=== PATIENT | female | born 1945 | race Caucasian/White ===

== ENCOUNTER 2017-12-06 04:10 | Inpatient (IN) | payer MEDICAID, MEDICARE, OTHER ==
[~2017-12-06] VITALS: Ht 152.4 cm; Wt 70.3 kg
[~2017-12-06 04:10] MED LIST: AMLO5TAB88 PO; FERR-63 PO; LEVO175T7 PO; LORA10TA7 PO; LOSA100T14 PO; METF-416 PO; OMEP20CA10 PO; SERT-112 PO
[2017-12-06] MEDS ORDERED: NITROGLYCERIN OINT 1GM/INCH UDPKT TD ONE (05:00)
[2017-12-06] MEDS ORDERED: FAMOTIDINE 20MG/2ML VIAL IV ONE (05:00)
[2017-12-06] MEDS ORDERED: ASPIRIN 325MG TABLET PO ONE (05:00)
[2017-12-06 05:48] LABS: BASOPHILS % 0.7 % (0.0-2.0); EOSINOPHILS % 2.8 % (0.0-5.0); HEMATOCRIT. 40.2 % (36.0-48.0); HEMOGLOBIN. 13.4 g/dL (12.0-16.0); LYMPHOCYTES % 26.1 % (20.0-50.0); MEAN CORPUSCULAR VOLUME 90.2 fL (81.0-99.0); MEAN PLATELET VOLUME 7.5 fl (7.4-10.4); MONOCYTES % 6.4 % (2.0-8.0); PLATELET 182 x1000/uL (130-400); RED BLOOD CELL COUNT 4.45 mill/uL (4.2-5.4); RED CELL DISTRIBUTION WIDTH 14.3 % (11.6-14.6)
[2017-12-06 06:23] LABS: CHLORIDE 106 mEq/L (98-107)
[2017-12-06 06:24] LABS: CLARITY URINE CLEAR (CLEAR); COLOR URINE YELLOW (YELLOW); KETONES URINE NEGATIVE (NEGATIVE); LEUKOCYTE ESTERASE URINE NEGATIVE (NEGATIVE); NITRITE URINE NEGATIVE (NEGATIVE); OCCULT BLOOD URINE NEGATIVE (NEGATIVE); PROTEIN URINE NEGATIVE (NEGATIVE); SPECIFIC GRAVITY URINE 1.016 (1.005-1.030); UROBILINOGEN URINE 0.2 E.U./dL (0.2-1.0)
[2017-12-06 09:53] VITALS: BP 122/72
[2017-12-06] MEDS ORDERED: ACETAMINOPHEN 650MG SUPP PR PRN (11:15)
[2017-12-06] MEDS ORDERED: DEXTROSE 50% WATER 50ML SYRINGE IV PRN (11:15)
[2017-12-06] MEDS ORDERED: IPRATROPIUM/ALBUTEROL 0.5-3(2.5)MG/3ML NEB INH PRN (11:15)
[2017-12-06] MEDS ORDERED: ONDANSETRON HCL 4MG/2ML INJ IV PRN (11:15)
[2017-12-06] MEDS ORDERED: DIPHENHYDRAMINE 50MG/ML VIAL IV PRN (11:15)
[2017-12-06] MEDS ORDERED: DEXT 5%/0.45% NACL 1000ML 1,000 ML IV SCH (11:30)
[2017-12-06 12:00] VITALS: BP 109/61
[2017-12-06] MEDS: BLOOD SUGAR DIAGNOSTIC STRIP TEST SCH ×3 (12:10→20:34)
[2017-12-06] MEDS: INSULIN LISPRO 100 UNITS/ML SUBCUT SCH ×3 (12:40→22:36)
[2017-12-06 15:20] VITALS: BP 122/64
[2017-12-06 16:20] LABS: BASOPHILS % 0.6 % (0.0-2.0); EOSINOPHILS % 2.7 % (0.0-5.0); HEMATOCRIT. 37.3 % (36.0-48.0); HEMOGLOBIN. 12.8 g/dL (12.0-16.0); LYMPHOCYTES % 35.1 % (20.0-50.0); MEAN CORPUSCULAR HEMOGLOBIN 30.5 pg (28.0-32.0); MEAN CORPUSCULAR VOLUME 89.1 fL (81.0-99.0); MEAN PLATELET VOLUME 7.7 fl (7.4-10.4); MONOCYTES % 6.6 % (2.0-8.0); PLATELET 178 x1000/uL (130-400); RED BLOOD CELL COUNT 4.19 mill/uL (4.2-5.4); RED CELL DISTRIBUTION WIDTH 14.1 % (11.6-14.6)
[2017-12-06 16:43] LABS: CHLORIDE 108 mEq/L (98-107)
[2017-12-06 16:50] LABS: *AMPHETAMINES SCREEN URINE NEGATIVE (NEGATIVE); *BARBITURATES SCREEN URINE NEGATIVE (NEGATIVE); *BENZODIAZEPINES SCREEN URINE NEGATIVE (NEGATIVE); *COCAINE SCREEN URINE NEGATIVE (NEGATIVE); METHADONE URINE SCREEN NEGATIVE (NEGATIVE); OPIATES URINE SCREEN NEGATIVE (NEGATIVE)
[2017-12-06 16:51] LABS: CANNABINOID URINE SCREEN NEGATIVE (NEGATIVE); PHENCYCLIDINE URINE SCREEN NEGATIVE (NEGATIVE)
[2017-12-06 16:56] LABS: CREATINE KINASE 29 IU/L (26-192)
[2017-12-06 16:59] LABS: CREATINE KINASE MB FRACTION < 1.0 ng/mL (0.5-3.6)
[2017-12-06] MEDS ORDERED: MAGNESIUM/ALUMINUM HYDROXIDE/SIMETHICONE 30ML UDC PO PRN (17:15)
[2017-12-06] MEDS ORDERED: DOCUSATE SODIUM 100MG CAPSULE PO PRN (17:15)
[2017-12-06 17:39] VITALS: BP_SYST 114; BP_SYST 122; BP_DIAS 55; BP_DIAS 64
[2017-12-06] MEDS: NICOTINE 14MG PATCH TD SCH (18:00)
[2017-12-06 20:00] VITALS: BP 112/57
[2017-12-06] MEDS: CARVEDILOL 3.125 MG TABLET PO SCH (21:00)
[2017-12-06] MEDS: ENOXAPARIN 40MG/0.4ML SYR SUBCUT SCH (22:34)
[2017-12-06] MEDS ORDERED: IOHEXOL-300 100 ML BOTTLE ONE (23:19)
[2017-12-07] VITALS (7 sets, daily range): BP systolic 112–134; BP diastolic 60–80
[2017-12-07 01:20] LABS: CREATINE KINASE 33 IU/L (26-192); CREATINE KINASE MB FRACTION < 1.0 ng/mL (0.5-3.6)
[2017-12-07] MEDS: BLOOD SUGAR DIAGNOSTIC STRIP TEST SCH ×4 (05:53→21:10)
[2017-12-07] MEDS: INSULIN LISPRO 100 UNITS/ML SUBCUT SCH ×4 (06:29→21:20)
[2017-12-07 07:17] LABS: D-DIMER 0.29 mg/L FEU (<0.50); PROTHROMBIN TIME 10.5 sec (9.1-11.1)
[2017-12-07 07:23] LABS: BASOPHILS % 0.5 % (0.0-2.0); EOSINOPHILS % 5.5 % (0.0-5.0); HEMATOCRIT. 38.6 % (36.0-48.0); HEMOGLOBIN. 12.9 g/dL (12.0-16.0); LYMPHOCYTES % 46.8 % (20.0-50.0); MEAN CORPUSCULAR VOLUME 89.6 fL (81.0-99.0); MEAN PLATELET VOLUME 7.6 fl (7.4-10.4); MONOCYTES % 8.4 % (2.0-8.0); NEUTROPHILS % 38.8 % (40.0-76.0); PLATELET 183 x1000/uL (130-400); RED BLOOD CELL COUNT 4.31 mill/uL (4.2-5.4); RED CELL DISTRIBUTION WIDTH 14.3 % (11.6-14.6)
[2017-12-07 07:55] LABS: CHLORIDE 107 mEq/L (98-107)
[2017-12-07 08:04] LABS: LDL CHOLESTEROL 114 mg/dL (5-100)
[2017-12-07 08:06] LABS: T4 FREE 1.07 ng/dL (0.76-1.46)
[2017-12-07 08:07] LABS: HDL CHOLESTEROL 28 mg/dL (40-59)
[2017-12-07] MEDS: ASPIRIN 81MG TABLET PO SCH (08:26)
[2017-12-07] MEDS: NICOTINE 14MG PATCH TD SCH (08:27)
[2017-12-07] MEDS: CARVEDILOL 3.125 MG TABLET PO SCH ×2 (08:27→21:18)
[2017-12-07] MEDS ORDERED: SODIUM BICARBONATE 4% (2.4MEQ) 5ML VIAL IV ONE (09:41)
[2017-12-07] MEDS: ACETAMINOPHEN 650MG/20.3ML UDC PO PRN ×2 (10:42→23:47)
[2017-12-07] MEDS ORDERED: REGADENOSON 0.4 MG/5 ML IV ONE (13:45)
[2017-12-07] MEDS ORDERED: MECLIZINE 25MG TABLET PO NR (14:00)
[2017-12-07] MEDS ORDERED: MECLIZINE 12.5MG TABLET PO PRN (14:00)
[2017-12-07] MEDS ORDERED: ATORVASTATIN CALCIUM 20MG TABLET PO SCH (21:00)
[2017-12-07] MEDS: ENOXAPARIN 40MG/0.4ML SYR SUBCUT SCH (21:19)
[2017-12-08] VITALS: BP_SYST 116; BP_SYST 125; BP_SYST 128; BP_DIAS 71; BP_DIAS 73
[2017-12-08] MEDS ORDERED: DEXT 5%/0.45% NACL 1000ML 1,000 ML IV SCH
[2017-12-08 04:00] VITALS: BP_SYST 124; BP_SYST 130; BP_SYST 94; BP_DIAS 61; BP_DIAS 70; BP_DIAS 73
[2017-12-08] MEDS: BLOOD SUGAR DIAGNOSTIC STRIP TEST SCH ×3 (06:19→18:04)
[2017-12-08] MEDS: INSULIN LISPRO 100 UNITS/ML SUBCUT SCH ×3 (06:19→18:04)
[2017-12-08 07:41] LABS: BASOPHILS % 0.6 % (0.0-2.0); EOSINOPHILS % 5.7 % (0.0-5.0); HEMOGLOBIN. 13.5 g/dL (12.0-16.0); LYMPHOCYTES % 47.1 % (20.0-50.0); MEAN CORPUSCULAR HEMOGLOBIN 31.6 pg (28.0-32.0); MEAN CORPUSCULAR VOLUME 89.2 fL (81.0-99.0); MEAN PLATELET VOLUME 7.5 fl (7.4-10.4); NEUTROPHILS % 37.6 % (40.0-76.0); PLATELET 176 x1000/uL (130-400); RED BLOOD CELL COUNT 4.26 mill/uL (4.2-5.4); RED CELL DISTRIBUTION WIDTH 13.8 % (11.6-14.6)
[2017-12-08 08:00] VITALS: BP 136/69
[2017-12-08 08:30] LABS: CHLORIDE 107 mEq/L (98-107)
[2017-12-08] MEDS: CARVEDILOL 3.125 MG TABLET PO SCH (08:53)
[2017-12-08] MEDS: NICOTINE 14MG PATCH TD SCH (08:53)
[2017-12-08] MEDS: MORPHINE SULFATE 4 MG/ML CPJ (NOT FOR IM USE) IV PRN ×2 (08:53→13:01)
[2017-12-08] MEDS: ASPIRIN 81MG TABLET PO SCH (08:53)
[2017-12-08 09:00] VITALS: BP_SYST 122; BP_SYST 125; BP_SYST 127; BP_DIAS 66; BP_DIAS 68
[2017-12-08] MEDS ORDERED: REGADENOSON 0.4 MG/5 ML IV ONE (11:21)
[2017-12-08 12:45] VITALS: BP 136/67
[2017-12-08 16:03] VITALS: BP_SYST 108; BP_SYST 114; BP_SYST 128; BP_DIAS 28; BP_DIAS 55; BP_DIAS 57
[2017-12-08] MEDS ORDERED: ALPRAZOLAM 0.25 MG TABLET PO NR (16:55)
== END 2017-12-08 19:48 | disposition home or self-care (01) | DRG 375 ==
LOC: ER 04:10 → 8WST 06:28 → EDBEDREQTM 06:30 → EDBEDREQ 06:30 → ENRESERV 07:04 → ER 07:15
PROVIDERS: ADMIT Internal Medicine; ATTEND Internal Medicine
DX: D49.0 Neoplasm of unspecified behavior of digestive system (principal); E44.1 Mild protein-calorie malnutrition; E11.65 Type 2 diabetes mellitus with hyperglycemia; G90.8 Other disorders of autonomic nervous system; R07.89 Other chest pain; F17.210 Nicotine dependence, cigarettes, uncomplicated; R51 Headache; F41.9 Anxiety disorder, unspecified; E78.5 Hyperlipidemia, unspecified; E03.9 Hypothyroidism, unspecified; I11.9 Hypertensive heart disease without heart failure; I25.2 Old myocardial infarction; Z82.49 Family history of ischemic heart disease and other diseases of the circulatory system; Z83.3 Family history of diabetes mellitus; Z91.19 Patient's noncompliance with other medical treatment and regimen
CPT/HCPCS: 36415; 71045; 74178; 76705; 78452; 80048; 80061; 80305; 82550; 82553; 82962; 83036; 83605; 83735; 83880; 84439; 84443; 84484; 85379; 93005; 93017; 93306; 96374; 97161; 99285; A9500; J1650; J1815; J2270; J2785; J3490; J8597; Q9967

== ENCOUNTER 2022-03-07 19:42 | Emergency (ER) | payer MEDICARE, OTHER ==
[~2022-03-07] VITALS: Ht 157.5 cm; Wt 69.1 kg
[~2022-03-07 19:42] MED LIST changes: -LOSA100T14 PO; +LOSA100T32 PO; -OMEP20CA10 PO; +OMEP20CA14 PO
[2022-03-07 20:05] VITALS: BP 138/84
[2022-03-07] MEDS ORDERED: ACETAMINOPHEN 325MG TABLET PO ONE (22:15)
[2022-03-07] MEDS ORDERED: TOPUD PO (22:39)
[2022-03-07] MEDS ORDERED: IBUP-2028 MT (22:39)
== END 2022-03-07 23:24 | disposition home or self-care (01) ==
LOC: ER 19:42
DX: S00.83XA Contusion of other part of head, initial encounter (principal); W18.39XA Other fall on same level, initial encounter; Y93.89 Activity, other specified; Y92.89 Other specified places as the place of occurrence of the external cause; Y99.8 Other external cause status; E11.9 Type 2 diabetes mellitus without complications; I10 Essential (primary) hypertension; Z79.899 Other long term (current) drug therapy
CPT/HCPCS: 70486; 99284

== ENCOUNTER 2022-10-03 23:28 | Emergency (ER) | payer OTHER ==
[~2022-10-03] VITALS: Ht 157.5 cm; Wt 68.0 kg
[~2022-10-03 23:28] MED LIST changes: +IBUP-2028 MT; -LOSA100T32 PO; +LOSA100T33 PO; +TOPUD PO
[2022-10-03 23:45] VITALS: O2SAT 98
[2022-10-04 01:35] LABS: EOSINOPHILS % 3.7 % (0.0-5.0); HEMATOCRIT. 26.4 % (36.0-48.0); HEMOGLOBIN. 8.8 g/dL (12.0-16.0); LYMPHOCYTES % 14.4 % (20.0-50.0); MEAN CORPUSCULAR HGB CONC 33.2 g/dL (31.0-37.0); MEAN CORPUSCULAR VOLUME 81.4 fL (81.0-99.0); MEAN PLATELET VOLUME 8.1 fl (7.4-10.4); MONOCYTES % 7.1 % (2.0-8.0); NEUTROPHILS % 73.8 % (40.0-76.0); PLATELET 116 x1000/uL (130-400); RED BLOOD CELL COUNT 3.24 mill/uL (4.2-5.4); RED CELL DISTRIBUTION WIDTH 16.6 % (11.6-14.6); WHITE BLOOD COUNT 7.1 x1000/uL (4.5-11.0)
[2022-10-04] MEDS ORDERED: FERR1TAB91 MT (01:42)
[2022-10-04 03:48] LABS: INR 1.4; PROTHROMBIN TIME 15.3 sec (9.6-11.0)
[2022-10-04 03:49] LABS: PARTIAL THROMBOPLASTIN TIME 23.6 sec (23.4-31.0)
[2022-10-04 05:30] VITALS: BP 149/65; PULSE 64; RESP 14; TEMP 98.9
== END 2022-10-04 05:35 ==
LOC: ER 23:28
DX: R04.0 Epistaxis (principal); D64.9 Anemia, unspecified; E11.9 Type 2 diabetes mellitus without complications; I10 Essential (primary) hypertension; Z79.899 Other long term (current) drug therapy
CPT/HCPCS: 36415; 85025; 99283

== ENCOUNTER 2023-04-09 03:07 | Inpatient (IN) | payer OTHER ==
[~2023-04-09] VITALS: Ht 167.6 cm; Wt 68.5 kg
[~2023-04-09 03:07] MED LIST changes: +FERR1TAB91 MT
[2023-04-09 03:39] LABS: HEMATOCRIT. 36.1 % (36.0-48.0); HEMOGLOBIN. 11.8 g/dL (12.0-16.0); MEAN CORPUSCULAR HEMOGLOBIN 29.1 pg (28.0-32.0); MEAN CORPUSCULAR HGB CONC 32.7 g/dL (31.0-37.0); MEAN PLATELET VOLUME 7.6 fl (7.4-10.4); PLATELET 235 x1000/uL (130-400); RED BLOOD CELL COUNT 4.05 mill/uL (4.2-5.4); RED CELL DISTRIBUTION WIDTH 18.4 % (11.6-14.6); WHITE BLOOD COUNT 15.3 x1000/uL (4.5-11.0)
[2023-04-09 03:42] LABS: DIFFERENTIAL COMMENT 1
[2023-04-09 03:43] LABS: PARTIAL THROMBOPLASTIN TIME 27.2 sec (23.4-31.0); PROTHROMBIN TIME 10.7 sec (9.6-11.0)
[2023-04-09 03:54] LABS: AMMONIA < 10 uMol/L (<32)
[2023-04-09 03:58] LABS: ALANINE AMINOTRANSFERASE 16 IU/L (10-49); ASPARTATE AMINOTRANSFERASE 24 IU/L (<34); BILIRUBIN TOTAL 1.1 mg/dL (0.1-1.0); CARBON DIOXIDE 23 mEq/L (21-32); CHLORIDE 102 mEq/L (98-107); CREATININE 1.2 mg/dL (0.6-1.0); GLUCOSE 232 mg/dL (70-105); POTASSIUM 4.4 mEq/L (3.5-5.1); PROTEIN TOTAL 6.8 g/dL (6.0-8.3); SODIUM 136 mEq/L (136-145); THYROID STIMULATING HORMONE 82.46 uIU/mL (0.55-4.78); TROPONIN I HIGH SENSITIVITY 14 ng/L (3.0-34); UREA NITROGEN BLOOD 21 mg/dL (9-23)
[2023-04-09] MEDS ORDERED: SODIUM CHLORIDE 0.9% 1,000 ML IV NR (04:15)
[2023-04-09 04:50] LABS: PLATELET ESTIMATE NORMAL
[2023-04-09 04:52] LABS: ETHANOL BLOOD < 10 mg/dL (<10)
[2023-04-09] MEDS: SODIUM CHLORIDE 0.9% 1,000 ML IV NR (05:42)
[2023-04-09 05:52] LABS: CLARITY URINE CLEAR (CLEAR); COLOR URINE DARK YELLOW (YELLOW); GLUCOSE URINE TRACE (NEGATIVE); KETONES URINE 1+ (NEGATIVE); LEUKOCYTE ESTERASE URINE NEGATIVE (NEGATIVE); NITRITE URINE NEGATIVE (NEGATIVE); OCCULT BLOOD URINE 1+ (NEGATIVE); PH URINE 5.5 (4.5-8.0); PROTEIN URINE 4+ (NEGATIVE); SPECIFIC GRAVITY URINE 1.028 (1.005-1.030)
[2023-04-09] MEDS ORDERED: PIPERACILLIN/TAZO 3.375G/50ML 50 ML IV SCH (06:00)
[2023-04-09 06:10] LABS: *AMPHETAMINES SCREEN URINE NEGATIVE (NEGATIVE); *BARBITURATES SCREEN URINE NEGATIVE (NEGATIVE); *BENZODIAZEPINES SCREEN URINE NEGATIVE (NEGATIVE); *COCAINE SCREEN URINE NEGATIVE (NEGATIVE); CANNABINOID URINE SCREEN NEGATIVE (NEGATIVE); ECSTASY MDMA SCREEN URINE NEGATIVE (NEGATIVE); METHADONE URINE SCREEN Neg (NEGATIVE); OPIATES URINE SCREEN PRESUMPTIVE POSITIVE (NEGATIVE); PHENCYCLIDINE URINE SCREEN NEGATIVE (NEGATIVE); RBC URINE 0-2 /hpf (0-2); WBC URINE 0-2 /hpf (0-2)
[2023-04-09 06:11] LABS: BACTERIA URINE NONE SEEN; SQUAMOUS EPITHELIAL CELL URINE FEW /lpf (RARE/1+)
[2023-04-09 06:12] LABS: YEAST URINE FEW BUDDING YEASTS
[2023-04-09 06:14] LABS: FINE GRANULAR CASTS URINE 0-5 /lpf
[2023-04-09] MEDS: AZTREONAM 2 GM in DEXT 5% WATER 100 ML IV SCH (06:25)
[2023-04-09] MEDS: LEVOTHYROXINE SODIUM 100 MCG/ VIAL IV NR (06:25)
[2023-04-09 08:00] VITALS: BP 142/81; PULSE 94; RESP 20; TEMP 97.2
[2023-04-09 09:00] VITALS: BP 142/81; PULSE 94; RESP 20; TEMP 97
[2023-04-09 12:00] VITALS: BP 175/76; PULSE 74; RESP 20; TEMP 97.6
[2023-04-09] MEDS: SODIUM CHLORIDE 0.9% 1,000 ML IV SCH (12:45)
[2023-04-09] MEDS ORDERED: DEXTROSE 50% WATER 50ML SYRINGE IV PRN (12:45)
[2023-04-09] MEDS: INSULIN LISPRO 100 UNITS/ML SUBCUT SCH (12:45)
[2023-04-09] MEDS: BLOOD SUGAR DIAGNOSTIC STRIP TEST SCH (13:34)
[2023-04-09] MEDS ORDERED: LEVOTHYROXINE SODIUM 100 MCG/ VIAL IV SCH (14:00)
[2023-04-09] MEDS: LEVOFLOXACIN 500MG PREMIX 100 ML IV NR (15:12)
[2023-04-09 16:00] VITALS: BP 174/78; PULSE 68; RESP 18; TEMP 98
[2023-04-10] VITALS (7 sets, daily range): BP systolic 141–187; BP diastolic 73–94; PULSE 75–83; RESP 17–20; TEMP 96.6–97.7
[2023-04-10 06:35] LABS: BASOPHILS % 0.2 % (0.0-2.0); EOSINOPHILS % 0.7 % (0.0-5.0); HEMATOCRIT. 29.6 % (36.0-48.0); HEMOGLOBIN. 10.1 g/dL (12.0-16.0); LYMPHOCYTES % 15.1 % (20.0-50.0); MEAN CORPUSCULAR HEMOGLOBIN 29.3 pg (28.0-32.0); MEAN PLATELET VOLUME 7.8 fl (7.4-10.4); PLATELET 190 x1000/uL (130-400); RED BLOOD CELL COUNT 3.44 mill/uL (4.2-5.4); WHITE BLOOD COUNT 7.1 x1000/uL (4.5-11.0)
[2023-04-10] MEDS: LEVOTHYROXINE SODIUM 100 MCG/ VIAL IV SCH (06:44)
[2023-04-10 06:45] LABS: CARBON DIOXIDE 22 mEq/L (21-32); CHLORIDE 108 mEq/L (98-107); CREATININE 0.9 mg/dL (0.6-1.0); GLUCOSE 135 mg/dL (70-105); POTASSIUM 3.7 mEq/L (3.5-5.1); SODIUM 139 mEq/L (136-145); UREA NITROGEN BLOOD 21 mg/dL (9-23)
[2023-04-10] MEDS ORDERED: LEVOFLOXACIN 250MG PREMIX 50 ML IV SCH (11:00)
[2023-04-10] MEDS: AMLODIPINE 10MG TABLET PO SCH (12:49)
[2023-04-10] MEDS: LEVOFLOXACIN 750MG PREMIX 150 ML IV SCH (21:03)
[2023-04-11] VITALS: BP 127/67; PULSE 62; RESP 18; TEMP 96.6
[2023-04-11 04:00] VITALS: BP 163/90; PULSE 80; RESP 18; TEMP 97.1
[2023-04-11 08:00] VITALS: BP 180/80; PULSE 81; RESP 18; TEMP 97.4
[2023-04-11 12:00] VITALS: BP 153/75; PULSE 78; RESP 18; TEMP 97.6
[2023-04-11 16:00] VITALS: BP 112/70; PULSE 110; RESP 18; TEMP 98
[2023-04-11 20:00] VITALS: BP 185/100; PULSE 87; RESP 17; TEMP 98.1
[2023-04-11] MEDS: CLONIDINE 0.1MG TABLET PO PRN (21:10)
[2023-04-11 22:36] LABS: T4 FREE 0.61 ng/dL (0.89-1.76); THYROID STIMULATING HORMONE 64.53 uIU/mL (0.55-4.78)
[2023-04-12] VITALS: BP 163/87; PULSE 72; RESP 18; TEMP 97.2
[2023-04-12 04:00] VITALS: BP 160/89; PULSE 87; RESP 19; TEMP 98.8
[2023-04-12 08:00] VITALS: BP 183/89; PULSE 78; RESP 18; TEMP 98.3
[2023-04-12 12:00] VITALS: BP 149/71; PULSE 75; RESP 16; TEMP 96.4
[2023-04-12] MEDS: LOSARTAN 100 MG TABLET PO SCH (12:40)
[2023-04-12 16:00] VITALS: BP 128/77; PULSE 70; RESP 16; TEMP 96.4
[2023-04-12 20:00] VITALS: BP_SYST 141; BP_SYST 161; BP_DIAS 77; BP_DIAS 82; PULSE 75; RESP 20; TEMP 98.2
[2023-04-13] VITALS: BP 169/82; PULSE 73; RESP 21; TEMP 96.3
[2023-04-13 04:00] VITALS: BP 184/90; PULSE 82; RESP 20; TEMP 97.5
[2023-04-13 08:00] VITALS: BP 179/87; PULSE 81; RESP 18; TEMP 98.2
[2023-04-13 12:00] VITALS: BP 151/64; PULSE 85; RESP 18; TEMP 97.6
[2023-04-13] MEDS: LEVOTHYROXINE SODIUM 150MCG TABLET PO SCH (13:23)
[2023-04-13] MEDS: HYDRALAZINE HCL 100MG TABLET PO NR (13:25)
[2023-04-13 16:00] VITALS: BP 105/62; PULSE 87; RESP 18; TEMP 97.7
[2023-04-13 20:00] VITALS: BP 145/77; PULSE 86; RESP 18; TEMP 98.1
[2023-04-13] MEDS: HYDRALAZINE HCL 100MG TABLET PO SCH (21:12)
[2023-04-14] VITALS: BP 148/79; PULSE 88; RESP 19; TEMP 97.8
[2023-04-14 04:00] VITALS: BP 167/84; PULSE 86; RESP 18; TEMP 97.9
[2023-04-14 08:00] VITALS: BP 151/73; PULSE 69; RESP 20; TEMP 96.7
[2023-04-14 12:00] VITALS: BP 145/71; PULSE 76; RESP 20; TEMP 98.5
[2023-04-14] MEDS: ACETAMINOPHEN 650MG/20.3ML UDC PO PRN (13:57)
[2023-04-14 16:00] VITALS: BP 136/76; PULSE 70; RESP 18; TEMP 97.5
[2023-04-14 20:00] VITALS: BP 166/86; PULSE 85; RESP 18; TEMP 98.2
[2023-04-14 22:24] LABS: HEMATOCRIT 33.2 % (36.0-48.0); MEAN CORPUSCULAR HGB CONC 33.2 g/dL (31.0-37.0); MEAN CORPUSCULAR VOLUME 87.5 fL (81.0-99.0); PLATELET 303 x1000/uL (130-400); RED CELL DISTRIBUTION WIDTH 19.1 % (11.6-14.6); WHITE BLOOD COUNT 6.9 x1000/uL (4.5-11.0)
[2023-04-14 22:44] LABS: CALCIUM 8.3 mg/dL (8.7-10.4); POTASSIUM 3.7 mEq/L (3.5-5.1)
[2023-04-15] VITALS: BP 135/75; PULSE 79; RESP 17; TEMP 98.2
[2023-04-15 04:00] VITALS: BP 132/75; PULSE 80; RESP 18; TEMP 98.1
[2023-04-15 08:00] VITALS: BP 149/89; PULSE 86; RESP 20; TEMP 98
[2023-04-15 12:00] VITALS: BP 149/83; PULSE 86; RESP 20; TEMP 98
[2023-04-15] MEDS: NATEGLINIDE 60MG TABLET PO SCH (12:03)
[2023-04-15] MEDS: PANTOPRAZOLE SODIUM 40 MG/VIAL IV SCH (14:23)
[2023-04-15 16:00] VITALS: BP_SYST 145; BP_SYST 173; BP_DIAS 77; BP_DIAS 86; PULSE 80; PULSE 88; RESP 18; RESP 20; TEMP 98.1; TEMP 98.9
[2023-04-15 20:00] VITALS: BP 165/74; PULSE 72; RESP 18; TEMP 97.6
[2023-04-15 21:55] LABS: IRON 43 ug/dL (50-170); TOTAL IRON BINDING CAPACITY 172 ug/dl (250-425)
[2023-04-15 21:59] LABS: FERRITIN 133 ng/mL (10-291); FOLIC ACID (FOLATE) SERUM 8.59 ng/mL (>5.38); VITAMIN B12 SERUM 1235 pg/mL (211-911)
[2023-04-16 04:00] VITALS: BP 169/85; PULSE 85; RESP 18; TEMP 98.2
[2023-04-16 06:22] LABS: CALCIUM 8.4 mg/dL (8.7-10.4); CARBON DIOXIDE 20 mEq/L (21-32); CHLORIDE 111 mEq/L (98-107); CHOLESTEROL 154 mg/dL (<200); CREATININE 0.8 mg/dL (0.6-1.0); GLUCOSE 179 mg/dL (70-105); HDL CHOLESTEROL 38 mg/dL (>65); LDL CHOLESTEROL 96 mg/dL (5-100); POTASSIUM 3.4 mEq/L (3.5-5.1); SODIUM 143 mEq/L (136-145); TRIGLYCERIDE 118 mg/dL (0-150); UREA NITROGEN BLOOD 18 mg/dL (9-23)
[2023-04-16 06:28] LABS: BASOPHILS % 0.8 % (0.0-2.0); EOSINOPHILS % 1.5 % (0.0-5.0); HEMATOCRIT. 31.9 % (36.0-48.0); HEMOGLOBIN. 10.7 g/dL (12.0-16.0); LYMPHOCYTES % 14.7 % (20.0-50.0); MEAN CORPUSCULAR HGB CONC 33.4 g/dL (31.0-37.0); MEAN CORPUSCULAR VOLUME 86.6 fL (81.0-99.0); MEAN PLATELET VOLUME 7.2 fl (7.4-10.4); MONOCYTES % 7.1 % (2.0-8.0); NEUTROPHILS % 75.9 % (40.0-76.0); PLATELET 314 x1000/uL (130-400); RED BLOOD CELL COUNT 3.68 mill/uL (4.2-5.4); RED CELL DISTRIBUTION WIDTH 18.8 % (11.6-14.6); WHITE BLOOD COUNT 6.5 x1000/uL (4.5-11.0)
[2023-04-16 08:00] VITALS: BP 146/65; PULSE 77; RESP 18; TEMP 98.1
[2023-04-16] MEDS: POTASSIUM CHLORIDE 20MEQ TABLET SR PO NR (12:00)
[2023-04-16] MEDS: ASPIRIN 81MG TABLET PO SCH (12:00)
[2023-04-16 12:34] VITALS: BP 127/57; PULSE 74; RESP 18; TEMP 98.7
[2023-04-16 15:05] VITALS: BP 127/57; PULSE 74; TEMP 98.6; O2SAT 98
[2023-04-16 16:00] VITALS: BP 132/67; PULSE 78; RESP 18; TEMP 96.9
[2023-04-16] MEDS: ENOXAPARIN 40MG/0.4ML SYR SUBCUT SCH (17:27)
[2023-04-16] MEDS ORDERED: ACETAMINOPHEN 650MG/20.3ML UDC PO PRN (17:45)
[2023-04-16] MEDS ORDERED: ATORVASTATIN CALCIUM 40MG TABLET PO SCH (21:00)
== END 2023-04-16 20:22 | DRG 871 ==
LOC: ER 03:07 → 8WST 08:41 → 6WST 04-15 17:02
PROVIDERS: ADMIT Internal Medicine Pulmonary Disease; ATTEND Internal Medicine Pulmonary Disease
DX: A41.9 Sepsis, unspecified organism (principal); G93.41 Metabolic encephalopathy; I63.9 Cerebral infarction, unspecified; J18.9 Pneumonia, unspecified organism; G81.91 Hemiplegia, unspecified affecting right dominant side; I11.9 Hypertensive heart disease without heart failure; R29.810 Facial weakness; E11.9 Type 2 diabetes mellitus without complications; E03.9 Hypothyroidism, unspecified; D64.9 Anemia, unspecified; E78.5 Hyperlipidemia, unspecified; R13.10 Dysphagia, unspecified; E11.65 Type 2 diabetes mellitus with hyperglycemia; Z79.4 Long term (current) use of insulin
CPT/HCPCS: 36415; 70551; 71045; 80048; 80053; 80061; 80305; 80320; 81003; 82140; 82533; 82607; 82728; 82746; 82962; 83036; 83540; 83550; 83605; 83880; 84439; 84443; 84484; 85025; 85027; 85044; 86376; 92610; 93005; 97161; 97166; 97530; 99291; A6261; C1893; C9113; J1650; J1815; J1956; J3490; J7030; J7060; G0480